=== PATIENT | male | born 1960 | race Caucasian/White ===

== ENCOUNTER 2018-03-12 18:47 | Emergency (ER) | payer OTHER ==
[2018-03-12] VITALS (7 sets, daily range): BP systolic 91–139; BP diastolic 63–87; PULSE 65–70; RESP 16–18; TEMP 97.6; O2SAT 95–100
--- NOTE | 2018-03-12 19:03 | PD ---
HPI Chief Complaint: Syncope/Near-Syncope Time Seen by Provider: 18:56 Travel History International Travel<30 days: No Contact w/Intl Traveler<30days: No Traveled to known affect area: No History of Present Illness HPI describes a syncopal episode lasting approximately 15 seconds, no seizure activity or tonic-clonic activity, once the patient came to he was able to resume conversation. Per patient's he was sitting down eating dinner when this occurred. Patient recalls feeling sick to his stomach just prior to the event. Patient does not recall having any headache, chest pain, neck pain, back pain or abdominal pain prior to the syncopal event. describes him as diaphoretic and pale during the event, and fully unresponsive, not responding to pain or other stimulus. Upon arrival by EMS 12-lead Accu-Chek both were in the normal range, however patient was found to be hypotensive on scene with a systolic in the low 90s. PCP is Dr. Carlton No known drug allergy History of arthritis and back and shoulder orthopedic surgeries... Due to chronic back pain the patient takes hydrocodone and Celebrex which she has taken chronically for years. PFSH Past Medical History Arthritis: Yes Diminished Hearing: No Tetanus Vaccination: > 5 Years Influenza Vaccination: No Social History Alcohol Use: No Tobacco Use: No Substance Use: No Allergies-Medications (Allergen,Severity, Reaction): Coded Allergies: No Known Allergies (Unverified , 03/12/18) Reported Meds & Prescriptions Reported Meds & Active Scripts Active Reported Hydrocodone-Acetaminophen 10-325 mg Tab 1 Tab PO BID PRN Celebrex (Celecoxib) 400 Mg Cap 400 Mg PO DAILY Review of Systems General / Constitutional: No: Fever Eyes: No: Visual changes HENT: No: Headaches Cardiovascular: No: Chest Pain or Discomfort Respiratory: No: Shortness of Breath Gastrointestinal: Positive: Nausea Genitourinary: No: Dysuria Musculoskeletal: No: Pain Skin: No Rash Neurologic: Positive: Syncope Psychiatric: No: Depression Endocrine: No: Polydipsia Hematologic/Lymphatic: No: Easy Bruising Physical Exam Narrative GENERAL: SKIN: Warm and dry. HEAD: Atraumatic. Normocephalic. EYES: Pupils equal and round. No scleral icterus. No injection or drainage. ENT: No nasal bleeding or discharge. Mucous membranes pink and moist. NECK: Trachea midline. No JVD. CARDIOVASCULAR: Regular rate and rhythm. RESPIRATORY: No accessory muscle use. Clear to auscultation. Breath sounds equal bilaterally. GASTROINTESTINAL: Abdomen soft, non-tender, nondistended. MUSCULOSKELETAL: Extremities without clubbing, cyanosis, or edema. No obvious deformities. NEUROLOGICAL: Awake and alert. No obvious cranial nerve deficits. Motor grossly within normal limits. Five out of 5 muscle strength in the arms and legs. Normal speech. PSYCHIATRIC: Appropriate mood and affect; insight and judgment normal. Data Data Last Documented VS Vital Signs Date Time Temp Pulse Resp B/P (MAP) Pulse Ox O2 Delivery O2 Flow Rate FiO2 03/12/18 21:30 70 16 139/87 (104) 100 Room Air 03/12/18 18:56 97.6 Orders Orders Electrocardiogram (03/12/18:) Complete Blood Count With Diff (03/12/18 19:12) Comprehensive Metabolic Panel (03/12/18:12) B-Type Natriuretic Peptide (03/12/18:12) Ckmb (Isoenzyme) Profile (03/12/18:12) Troponin I (03/12/18:12) Act Partial Throm Time (Ptt) (03/12/18:12) Prothrombin Time / Inr (Pt) (03/12/18:12) Urinalysis - C+S If Indicated (03/12/18 19:12) Ecg Monitoring (03/12/18 19:12) Iv Access Insert/Monitor (03/12/18:12) Oximetry (03/12/18:12) Sodium Chlor 0.9% 1000 Ml Inj (Ns 1000 M (03/12/18 19:12) Orthostatic Vital Signs (03/12/18 19:12) D-Dimer (03/12/18 19:12) Ct Brain W/O Iv Contrast(Rout) (03/12/18 19:56) CKMB (03/12/18 19:40) CKMB% (03/12/18 19:40) Ct Pulmonary Angiogram (03/12/18 21:11) Iohexol 350 Inj (Omnipaque 350 Inj) (03/12/18 21:57) Labs Laboratory Tests Test 03/12/18 19:40 03/12/18 21:10 White Blood Count 12.1 TH/MM3 Red Blood Count 4.60 MIL/MM3 Hemoglobin 14.2 GM/DL Hematocrit 42.3 % Mean Corpuscular Volume 92.0 FL Mean Corpuscular Hemoglobin 31.0 PG Mean Corpuscular Hemoglobin Concent 33.6 % Red Cell Distribution Width 12.1 % Platelet Count 312 TH/MM3 Mean Platelet Volume 7.9 FL Neutrophils (%) (Auto) 74.9 % Lymphocytes (%) (Auto) 17.3 % Monocytes (%) (Auto) 6.2 % Eosinophils (%) (Auto) 1.3 % Basophils (%) (Auto) 0.3 % Neutrophils # (Auto) 9.0 TH/MM3 Lymphocytes # (Auto) 2.1 TH/MM3 Monocytes # (Auto) 0.8 TH/MM3 Eosinophils # (Auto) 0.2 TH/MM3 Basophils # (Auto) 0.0 TH/MM3 CBC Comment DIFF FINAL Differential Comment Prothrombin Time 10.5 SEC Prothromb Time International Ratio 1.0 RATIO Activated Partial Thromboplast Time 22.6 SEC D-Dimer Quantitative (PE/DVT) 0.54 MG/L FEU Blood Urea Nitrogen 14 MG/DL Creatinine 1.10 MG/DL Random Glucose 111 MG/DL Total Protein 7.1 GM/DL Albumin 4.0 GM/DL Calcium Level 8.6 MG/DL Alkaline Phosphatase 70 U/L Aspartate Amino Transf (AST/SGOT) 17 U/L Alanine Aminotransferase (ALT/SGPT) 27 U/L Total Bilirubin 0.5 MG/DL Sodium Level 139 MEQ/L Potassium Level 3.8 MEQ/L Chloride Level 105 MEQ/L Carbon Dioxide Level 27.1 MEQ/L Anion Gap 7 MEQ/L Estimat Glomerular Filtration Rate 69 ML/MIN Total Creatine Kinase 162 U/L Creatine Kinase MB 1.5 NG/ML Troponin I 0.02 NG/ML B-Type Natriuretic Peptide 20 PG/ML Urine Color YELLOW Urine Turbidity CLEAR Urine pH 5.5 Urine Specific [place] GREATER/EQUAL 1.030 Urine Protein TRACE mg/dL Urine Glucose (UA) NEG mg/dL Urine Ketones TRACE mg/dL Urine Occult Blood TRACE Urine Nitrite NEG Urine Bilirubin NEG Urine Urobilinogen 0.2 MG/DL Urine Leukocyte Esterase NEG Urine RBC 0-3 /hpf Urine WBC 0-2 /hpf Urine Squamous Epithelial Cells 0-5 /hpf Urine Hyaline Casts 3-5 /lpf Urine Mucus MANY /lpf Microscopic Urinalysis Comment CULT NOT INDICATED MDM Medical Decision Making Medical Screen Exam Complete: Yes Emergency Medical Condition: Yes Medical Record Reviewed: Yes Interpretation(s) EKG shows sinus bradycardia at 59 bpm, normal intervals, there is some isolated J-point elevation on 1 aVL and 2 but without any abnormal T-wave Differential Diagnosis Dehydration versus anemia versus pericardial effusion versus tamponade versus pulmonary embolus versus intracranial hemorrhage versus brain mass versus UTI versus electrolyte abnormalities Narrative Course CBC shows white count of 12.1, normal H&H, and a normal platelet count, without any left shift appreciated Coagulation profile is within normal limits with exception of an elevated d- dimer of 0.54 Urinalysis did not show any evidence of a UTI Electrolytes are all within normal limits, normal kidney and liver functions. First set of cardiac enzymes negative, beta natruretic peptide also negative. CT head read at by radiologist as normal examination CT angiogram of the chest read by radiologist shows no evidence of pulmonary embolism, but it does show a 5 mm right middle lobe lung nodule that should be followed Diagnosis Primary Impression: Syncope Patient Instructions: General Instructions, Syncope (ED) Additional Instructions: Please follow-up with , for further outpatient evaluation of his syncope. This is to include Holter monitor, echocardiogram, MRI of brain, MRA of brain, carotid ultrasound and referral to transmission tester as well as neurologist. Disposition: 01 DISCHARGE HOME Condition: Stable Ramón Beaver MD March 12, 2018 19:03
[2018-03-12] MEDS ORDERED: SODIUM CHLOR 0.9% 1000 ML INJ 1,000 ML IV ONE (19:12)
[2018-03-12] MEDS ORDERED: CELE400C PO (19:16)
[2018-03-12] MEDS ORDERED: HYDR-3583 PO (19:16)
[2018-03-12 20:06] LABS: BASOPHIL % 0.3 % (0.0-2.0); EOSINOPHIL # 0.2 TH/MM3 (0-0.4); EOSINOPHIL % 1.3 % (0.0-4.0); HEMATOCRIT 42.3 % (39.0-51.0); HEMOGLOBIN 14.2 GM/DL (13.0-17.0); LYMPH % 17.3 % (9.0-44.0); LYMPHOCYTE # 2.1 TH/MM3 (1.0-4.8); MEAN CORPUSCULAR HGB CONC 33.6 % (32.0-36.0); MEAN PLATELET VOLUME 7.9 FL (7.0-11.0); MONO % 6.2 % (0.0-8.0); MONOCYTE # 0.8 TH/MM3 (0-0.9); NEUT % 74.9 % (16.0-70.0); PLATELET COUNT 312 TH/MM3 (150-450); RED CELL DISTRIBUTION WIDTH 12.1 % (11.6-17.2); WHITE BLOOD COUNT 12.1 TH/MM3 (4.0-11.0)
[2018-03-12 20:15] LABS: CHLORIDE 105 MEQ/L (98-107); SODIUM (NA) 139 MEQ/L (136-145)
[2018-03-12 20:18] LABS: CALCIUM 8.6 MG/DL (8.5-10.1)
[2018-03-12 20:19] LABS: BICARBONATE 27.1 MEQ/L (21.0-32.0); BLOOD UREA NITROGEN 14 MG/DL (7-18); GLUCOSE,RANDOM 111 MG/DL (74-106)
[2018-03-12 20:22] LABS: ALT (GPT) 27 U/L (12-78); AST (GOT) 17 U/L (15-37); GLOMERULAR FILTRATION RATE 69 ML/MIN (>89)
[2018-03-12 20:23] LABS: TOTAL BILIRUBIN ADULT 0.5 MG/DL (0.2-1.0); TOTAL PROTEIN 7.1 GM/DL (6.4-8.2)
[2018-03-12 20:25] LABS: ALKALINE PHOSPHATASE 70 U/L (45-117)
[2018-03-12 20:26] LABS: TROPONIN I 0.02 NG/ML (0.02-0.05)
[2018-03-12 20:33] LABS: D-DIMER 0.54 MG/L FEU (0.00-0.50); PROTHROMBIN TIME - PATIENT 10.5 SEC (9.8-11.6)
[2018-03-12 21:18] LABS: BILIRUBIN, URINE NEG (NEG); BLOOD, URINE TRACE (NEG); GLUCOSE,URINE NEG (NEG); KETONE, URINE TRACE mg/dL (NEG); NITRITE,URINE NEG (NEG); PH, URINE 5.5 (5.0-8.5); URINE COLOR YELLOW (YELLW/STRAW); URINE LEUKOCYTE ESTERASE NEG (NEG)
[2018-03-12 21:25] LABS: MUCUS URINE MANY /lpf (OCC)
[2018-03-12 21:26] LABS: RBC, URINE 0-3 /hpf (0-3); SQUAMOUS EPITHELIAL CELL URINE 0-5 /hpf (0-5); WBC, URINE 0-2 /hpf (0-5)
--- NOTE | 2018-03-12 21:27 | RADRPT ---
EXAM DATE/TIME: 03/12/2018 20:22 [facility] COMPARISON: No previous studies available for comparison. INDICATIONS : Syncope. RADIATION DOSE: 49.96 CTDIvol (mGy) MEDICAL HISTORY : None SURGICAL HISTORY : None. ENCOUNTER: Initial ACUITY: 1 day PAIN SCALE: 0/10 LOCATION: cranial TECHNIQUE: Multiple contiguous axial images were obtained of the head. Using automated exposure control and adj ustment of the mA and/or kV according to patient size, radiation dose was kept as low as reasonably a chievable to obtain optimal diagnostic quality images. DICOM format image data is available electro nically for review and comparison. FINDINGS: CEREBRUM: The ventricles are normal for age. No evidence of midline shift, mass lesion, hemorrhage or acute in farction. No extra-axial fluid collections are seen. POSTERIOR FOSSA: The cerebellum and brainstem are intact. The 4th ventricle is midline. The cerebellopontine angle i s unremarkable. EXTRACRANIAL: The visualized portion of the orbits is intact. SKULL: The calvaria is intact. No evidence of skull fracture. CONCLUSION: Normal examination. Cesar Barrios MD on March 12, 2018 at 21:23 Board Certified Radiologist. This report was verified electronically.
[2018-03-12] MEDS ORDERED: IOHEXOL 350 MG/ML 10 ML VIAL (for RAD DIAG) IVCONTRAST ONE (21:57)
--- NOTE | 2018-03-12 22:05 | RADRPT ---
EXAM DATE/TIME: 03/12/2018 21:30 [facility] COMPARISON: No previous studies available for comparison. INDICATIONS : Elevated d-dimer and syncope. IV CONTRAST: 75 cc Omnipaque 350 (iohexol) IV RADIATION DOSE: 14.07 CTDIvol (mGy) MEDICAL HISTORY : None SURGICAL HISTORY : None. ENCOUNTER: Initial ACUITY: 1 day PAIN SCALE: 0/10 LOCATION: chest TECHNIQUE: Volumetric scanning of the chest was performed using a pulmonary embolism protocol MIP images were re constructed. Using automated exposure control and adjustment of the mA and/or kV according to patien t size, radiation dose was kept as low as reasonably achievable to obtain optimal diagnostic quality images. DICOM format image data is available electronically for review and comparison. Follow-up recommendations for detected pulmonary nodules are based at a minimum on nodule size and pa tient risk factors according to Fleischner Society Guidelines. FINDINGS: PULMONARY ARTERIES: No filling defects are seen in the pulmonary arteries through the segmental level. LUNGS: There is a 5 mm nodule in the right middle lobe. Mild bilateral basilar atelectasis or scarring. No e vidence of lobar consolidation. PLEURAE: There is no pleural thickening or pleural effusion. MEDIASTINUM: There is good visualization of the great vessels of the middle mediastinum. No evidence of mediastin al or hilar adenopathy/mass. MUSCULOSKELETAL: Within normal limits for patient age. MISCELLANEOUS: The visualized upper abdominal organs demonstrate no acute abnormality. CONCLUSION: No evidence of pulmonary embolism. 5 mm right middle lobe lung nodule should be followed. Cesar Barrios MD on March 12, 2018 at 21:57 Board Certified Radiologist. This report was verified electronically.
--- NOTE | 2018-03-13 22:27 | EKG ---
Date Performed: 03/12/2018 Time Performed: 19:23:16 PTAGE: 57 years EKG: SINUS BRADYCARDIA ST ELEVATION, PROBABLY EARLY REPOLARIZATION BORDERLINE ECG NO PREVIOUS TRACING DOCTOR: Moses Rivera Interpretating Date/Time 03/13/2018 22:26:50
== END 2018-03-12 22:54 | disposition home or self-care (01) ==
LOC: PHED 18:47
DX: R55 Syncope and collapse (principal); R00.1 Bradycardia, unspecified; R94.31 Abnormal electrocardiogram [ECG] [EKG]; G89.29 Other chronic pain; M54.9 Dorsalgia, unspecified; M19.90 Unspecified osteoarthritis, unspecified site
CPT/HCPCS: 70450; 71275; 80053; 81001; 82550; 82552; 83880; 84484; 85025; 85379; 85610; 85730; 93005; 96360; 99285; J7030; Q9967